=== PATIENT | female | born 1940 | race Hispanic/Latino ===

== ENCOUNTER 2019-06-21 17:43 | Emergency (ER) | payer MEDICARE ==
--- NOTE | 2019-06-21 19:29 | Emergency Department Report ---
Blank Doc - Documentation Documentation: 79-year-old female that presents with a trip and fall with complaint of headac he, neck pain, and right clavicle pain. Denies any LOC. This initial assessment/diagnostic orders/clinical plan/treatment(s) is/are subject to change based on patient's health status, clinical progression and re- assessment by fellow clinical providers in the ED. Further treatment and workup at subsequent clinical providers discretion. Patient/guardians urged not to elope from the ED as their condition may be serious if not clinically assessed and managed. Initial orders include: 1- Patient sent to MAIN ED for further evaluation and treatment 2-CT head and neck 3- xrays 4- cervical collar
--- NOTE | 2019-06-21 20:01 | XRay Report ---
HISTORY:shoulder area pain s/p fall COMPARISON: None. TECHNIQUE: AP views were obtained FINDINGS: Bones: No fracture or dislocation. Joint spaces: Maintained. Soft tissues: No significant abnormality. Additional findings: None. IMPRESSION: 1. No significant abnormality. Signer Name: Randy Bowen MD Signed: 06/21/2019 7:57 PM Workstation Name: [id number]
--- NOTE | 2019-06-21 20:39 | Cat Scan Report ---
CLINICAL DATA: neck/head pain s/p fall TECHNICAL DATA: CT imaging of the cervical spine was performed in the axial, sagittal, and coronal projections and erica ne algorithm in axial projection in the soft tissue algorithm. All CT scans at this location are performed using CT dose reduction for ALARA by means of automated e xposure control. FINDINGS: The ring of C1 is normal. The odontoid is normal. There is no evidence of an offset. There is no e vidence of a fracture. However, degenerative changes are present with narrowing of the C1 odontoid j unction. The spinal canal is well maintained. C2-C3: The spinal canal is well maintained. The neural foramina are normal. The vertebral bodies a re normal. The posterior elements are intact. There is no evidence of a fracture. C3-C4: The spinal canal is well maintained. The neural foramina are normal. The vertebral bodies a re normal. The posterior elements are intact. There is no evidence of a fracture. C4-C5: The spinal canal is well maintained. The neural foramina are normal. The vertebral bodies a re normal. The posterior elements are intact. There is no evidence of a fracture. C5-C6: Marked intervertebral disc space narrowing is present with anterior and posterior osteophytes . The spinal canal is well maintained. The neural foramina are normal. The vertebral bodies are no rmal. The posterior elements are intact. There is no evidence of a fracture. C6-C7: Marked intervertebral disc space narrowing is present with anterior and posterior osteophytes . The spinal canal is well maintained. The neural foramina are normal. The vertebral bodies are no rmal. The posterior elements are intact. There is no evidence of a fracture. C7-T1: The spinal canal is well maintained. The neural foramina are normal. The vertebral bodies a re normal. The posterior elements are intact. There is no evidence of a fracture. IMPRESSION: No acute traumatic abnormality. Degenerative changes as noted. Signer Name: Randy Bowen MD Signed: 06/21/2019 8:35 PM Workstation Name: [id number]
--- NOTE | 2019-06-21 20:44 | Cat Scan Report ---
CT head/brain wo con INDICATION / CLINICAL INFORMATION: 79 years Female; neck/head pain s/p fall. TECHNIQUE: Routine CT head without contrast. All CT scans at this location are performed using CT dos e reduction for ALARA by means of automated exposure control. COMPARISON: None. FINDINGS: BRAIN / INTRACRANIAL CONTENTS: There is mild cerebral white matter disease most consistent with micro vascular angiopathy. There is dense calcification along the anterior falx. However, there is no clear CT evidence of acute intracranial hemorrhage or significant mass affect. There is mild edema involvi ng the posterior right scalp near the occiput. The calvarium appears intact. There is mild cerebral atrophy. The ventricular system is correspondingly appropriate in size and con figuration.. ORBITS: No significant abnormality of visualized orbits. SINUSES / MASTOIDS: No significant abnormality the visualized paranasal sinuses or mastoid air cells. CRANIOCERVICAL JUNCTION: No significant abnormality. ADDITIONAL FINDINGS: None. IMPRESSION: 1. 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 Signer Name: Trav Dumas MD Signed: 06/21/2019 8:40 PM Workstation Name: [id number]
--- NOTE | 2019-06-21 22:49 | Emergency Department Report ---
ED Fall HPI - General Chief Complaint: Fall Stated Complaint: FALL INJURY/HEAD SHOULDER PAIN Time Seen by Provider: 06/21/19 19:26 Source: patient Mode of arrival: Ambulatory - History of Present Illness Initial Comments: Pt states that she was taking groceries out of car and when she was walking into the house her feet got caught on a step and she fell. patient hit her head in the car as she fell backwards. There was no LOC. 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 denies: numbness, weakness, chest paint, shortness of breath, abdominal pain, hematuria, unable to walk, lightheaded, vertigo, confusion - Related Data Previous Rx's Medication Instructions Recorded Last Taken Type Ibuprofen [Motrin 600 MG tab] 600 mg PO Q8H PRN #14 tablet 06/21/19 Unknown Rx Allergies Allergy/AdvReac Type Severity Reaction Status Date / Time No Known Allergies Allergy Unverified 08/06/14 09:46 ED Review of Systems ROS: Stated complaint: FALL INJURY/HEAD SHOULDER PAIN Other details as noted in HPI Comment: All other systems reviewed and negative ED Past Medical Hx - Past Medical History Previous Medical History?: Yes Hx Diabetes: Yes - Surgical History Past Surgical History?: Yes Additional Surgical History: 2011 - Social History Smoking Status: Never Smoker Substance Use Type: None - Medications Home Medications: Home Medications Medication Instructions Recorded Confirmed Last Taken Type Ibuprofen [Motrin 600 MG tab] 600 mg PO Q8H PRN #14 tablet 06/21/19 Unknown Rx ED Physical Exam - General Limitations: No Limitations General appearance: alert, in no apparent distress - Head Head exam: Present: normocephalic. Absent: atraumatic (occipital hematoma pre sent) - Eye Eye exam: Present: normal appearance, PERRL, EOMI - ENT ENT exam: Present: mucous membranes moist - Neck Neck exam: Present: normal inspection - Respiratory Respiratory exam: Present: normal lung sounds bilaterally, chest wall tenderness (at the right clavicular and subclavicular region). Absent: respiratory distress, wheezes, rales, rhonchi - Cardiovascular Cardiovascular Exam: Present: regular rate, normal rhythm. Absent: systolic murmur, diastolic murmur, rubs, gallop - GI/Abdominal GI/Abdominal exam: Present: soft, normal bowel sounds. Absent: distended, tenderness, guarding, rebound - Extremities Exam Extremities exam: Present: normal inspection - Back Exam Back exam: Present: normal inspection - Neurological Exam Neurological exam: Present: alert, oriented X3 - Psychiatric Psychiatric exam: Present: normal affect, normal mood - Skin Skin exam: Present: warm, dry, intact, normal color. Absent: rash ED Course Vital Signs 06/21/19 19:27 Temperature 97.5 F L Pulse Rate 93 H Respiratory 18 Rate Blood Pressure 142/59 O2 Sat by Pulse 96 Oximetry ED Medical Decision Making - Radiology Data CT head/brain wo con INDICATION / CLINICAL INFORMATION: 79 years Female; neck/head pain s/p fall. TECHNIQUE: Routine CT head without contrast. All CT scans at this location are performed using CT dose reduction for ALARA by means of automated exposure control. COMPARISON: None. 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 There is dense calcification along the anterior falx. However, there is no clear CT evidence of acute intracranial hemorrhage or significant mass affect. There is mild edema involving the posterior right scalp near the occiput. The calvarium appears intact. There is mild cerebral atrophy. The ventricular system is correspondingly appropriate in size and configuration.. ORBITS: No significant abnormality of visualized orbits. SINUSES / MASTOIDS: No significant abnormality the visualized paranasal sinuses or mastoid air cells. CRANIOCERVICAL JUNCTION: No significant abnormality. ADDITIONAL FINDINGS: None. IMPRESSION: 1. 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 Signer Name: Trav Dumas MD Signed: 06/21/2019 8:40 PM HISTORY:shoulder area pain s/p fall COMPARISON: None. TECHNIQUE: AP views were obtained FINDINGS: Bones: No fracture or dislocation. Joint spaces: Maintained. Soft tissues: No significant abnormality. Additional findings: None. IMPRESSION: 1. No significant abnormality. Signer Name: Randy Bowen MD Signed: 06/21/2019 7:57 PM Workstation Name: [id number] neck/head pain s/p fall TECHNICAL DATA: CT imaging of the cervical spine was performed in the axial, sagittal, and coronal projections and bone algorithm in axial projection in the soft tissue algorithm. All CT scans at this location are performed using CT dose reduction for ALARA by means of automated exposure control. FINDINGS: The ring of C1 is normal. The odontoid is normal. There is no evidence of an offset. There is no evidence of a fracture. However, degenerative changes are present with narrowing of the C1 odontoid junction. The spinal canal is well maintained. C2-C3: The spinal canal is well maintained. The neural foramina are normal. The vertebral bodies are normal. The posterior elements are intact. There is no evidence of a fracture. C3-C4: The spinal canal is well maintained. The neural foramina are normal. The vertebral bodies are normal. The posterior elements are intact. There is no evidence of a fracture. C4-C5: The spinal canal is well maintained. The neural foramina are normal. The vertebral bodies are normal. The posterior elements are intact. There is no evidence of a fracture. C5-C6: Marked intervertebral disc space narrowing is present with anterior and posterior osteophytes. The spinal canal is well maintained. The neural foramina are normal. The vertebral bodies are normal. The posterior elements are intact. There is no evidence of a fracture. C6-C7: Marked intervertebral disc space narrowing is present with anterior and posterior osteophytes. The spinal canal is well maintained. The neural foramina are normal. The vertebral bodies are normal. The posterior elements are intact. There is no evidence of a fracture. C7-T1: The spinal canal is well maintained. The neural foramina are normal. The vertebral bodies are normal. The posterior elements are intact. There is no evidence of a fracture. IMPRESSION: No acute traumatic abnormality. Degenerative changes as noted. Signer Name: Randy Bowen MD Signed: 06/21/2019 8:35 PM Workstation Name: [id number] - Medical Decision Making patient suffered a fall at home. patient with contusion to right chest wall, no Fx seen. patient dc home Critical care attestation.: If time is entered above; I have spent that time in minutes in the direct care of this critically ill patient, excluding procedure time. ED Disposition Clinical Impression: Closed head injury Qualifiers: Encounter type: initial encounter Qualified Code(s): S09.90XA - Unspecified injury of head, initial encounter Scalp hematoma Qualifiers: Encounter type: initial encounter Qualified Code(s): S00.03XA - Contusion of scalp, initial encounter Chest wall contusion Qualifiers: Encounter type: initial encounter Laterality: right Qualified Code(s): S20.211A - Contusion of right front wall of thorax, initial encounter Cervical strain Qualifiers: Encounter type: initial encounter Qualified Code(s): S16.1XXA - Strain of muscle, fascia and tendon at neck level, initial encounter Disposition: DC-01 TO HOME OR SELFCARE Is pt being admited?: No Does the pt Need Aspirin: No Condition: Stable Instructions: Muscle Strain (ED), Contusion in Adults (ED), Cervical Spine Strain (ED) Additional Instructions: 1. Please use Ice pack in area of bruising and pain three times a day up to 20 min at a time as a minimal for the next 3 days 2. Wear a sling for 2 days only, as needed for comfort Time of Disposition: 22:54
[2019-06-21] MEDS ORDERED: IBUPROFEN 600 MG TAB PO ONE (22:55)
[2019-06-21 23:38] VITALS: BP 147/59
== END 2019-06-21 23:22 | disposition home or self-care (01) ==
LOC: ED 17:43
DX: S16.1XXA Strain of muscle, fascia and tendon at neck level, initial encounter (principal); S20.211A Contusion of right front wall of thorax, initial encounter; S00.03XA Contusion of scalp, initial encounter; E11.9 Type 2 diabetes mellitus without complications; Z79.1 Long term (current) use of non-steroidal anti-inflammatories (NSAID); W23.0XXA Caught, crushed, jammed, or pinched between moving objects, initial encounter; Y93.89 Activity, other specified; Y92.89 Other specified places as the place of occurrence of the external cause; Y99.8 Other external cause status
CPT/HCPCS: 70450; 72125; 99284